=== PATIENT | female | born 1985 | race American Indian/Alaskan Native ===

== ENCOUNTER 2018-02-12 08:00 | Inpatient (IN) | payer MEDICAID ==
[2018-02-12] MEDS ORDERED: PITOCin/NS 20 UNIT/1000ML DRIP 20,000 MILLIUNITS/1,000 ML BAG IV ONE (08:10)
--- NOTE | 2018-02-12 08:25 | History and Physical Report ---
History of Present Illness Date of examination: 02/12/18 (delivered at home) Date of admission: 02/12/18 08:00 Chief complaint: pt states she was having BH ctx then her water broke 0715 and the baby delivered shortly there after 0720. History of present illness: No PNC with this [id number] Pt denies hx of surgery no medical hx states she used marijuana prior to , denies ETOH no smoking. Past History - Obstetrical History Expected Date of Delivery: 05/27/18 Actual Gestation: 25 Week(s) 1 Day(s) : 5 Para: 1 Hx # Term Pregnancies: 1 (5 years ago) Spontaneous Abortions: 1 Induced : 2 Number of Living Children: 1 - Vital Signs Vital signs: Temp Pulse Resp BP Pulse Ox 104 H 115/75 02/12/18 08:22 02/12/18 08:22 - Physical Exam Breasts: Positive: deferred Cardiovascular: Regular rate, Normal S1, Normal S2 Abdomen: Positive: normal appearance, soft, normal bowel sounds. Negative: distention, tenderness Vulva: both: normal Vagina: Positive: normal moisture. Negative: discharge Cervix: Negative: lesion, discharge Uterus: Positive: normal size, normal contour Adnexa: both: normal Anus/Rectum: Positive: normal perianal skin, heme negative. Negative: rectal mass, hemorrhoids Extremities: Deep Tendon Reflex Grade: Normal +2 Results All other labs normal. All labs ordered Assessment and Plan 32yo @ approx 25 weeks Delivered at home. Arrived by EMS. Baby to NICU very . Placenta remains intact. Moderate bleeding noted. Orders in EMR
[2018-02-12] MEDS ORDERED: STADOL IV PRN (08:32)
[2018-02-12] MEDS ORDERED: ZOFRAN IV PRN (08:32)
[2018-02-12] MEDS ORDERED: LANSINOH TP PRN (08:38)
[2018-02-12] MEDS ORDERED: MOTRIN PO SCH (08:38)
[2018-02-12] MEDS ORDERED: PHENERGAN PR PRN (08:38)
[2018-02-12] MEDS ORDERED: DULCOLAX PR PRN (08:38)
[2018-02-12] MEDS ORDERED: TUCKS PAD TP PRN (08:38)
[2018-02-12] MEDS ORDERED: BENADRYL PO PRN (08:38)
[2018-02-12] MEDS ORDERED: MILK OF MAGNESIA PO PRN (08:38)
[2018-02-12] MEDS ORDERED: TYLENOL PO PRN (08:38)
[2018-02-12] MEDS ORDERED: PHENERGAN PO PRN (08:38)
--- NOTE | 2018-02-12 08:51 | Procedure Note ---
OB Delivery Note - [employer]: RA AGUILERA Estimated blood loss: 500cc - Vaginal Intrapartum events: no care, other(please specify) (delivered at home) Delivery placenta: spontaneous Delivery cord: 3 umbilical vessels Episiotomy: none Delivery comments: PPROM this AM Baby delivered at home Arrived via EMS Placenta delivered complete and intact by CNM. Sent to pathology. Pit IVFs EBL 500. Baby remains NICU Condition unknown at this time. - A Gender: Female (wgt and not available)
[2018-02-12] MEDS ORDERED: PITOCin/NS 20 UNIT/1000ML DRIP 20 UNITS/1,000 ML BAG IV SCH (09:00)
[2018-02-12] MEDS ORDERED: SODIUM CHLORIDE FLUSH SYRINGE 10 ML IV NR (09:00)
[2018-02-12] MEDS ORDERED: LACTATED RINGERS 1,000 ML IV SCH (09:00)
[2018-02-12 09:26] LABS: Hemoglobin 10.6 gm/dl (10.1-14.3); Mean Corpuscular HGB Conc 33 % (30-34); Mean Corpuscular Hemoglobin 29 pg (28-32); Mean Corpuscular Volume 88 fl (79-97); Platelet Count 276 K/mm3 (140-440); Red Blood Count 3.62 M/mm3 (3.65-5.03)
[2018-02-12] MEDS: MOTRIN PO SCH ×2 (09:32→20:45)
[2018-02-12] MEDS ORDERED: PRENATAL VITAMIN PO SCH (10:00)
[2018-02-12 10:07] LABS: Rubella IgG Antibody Immune (Immune)
[2018-02-12 11:31] LABS: Bilirubin,Urine NEG (Negative); Blood,Urine MOD (Negative); Color,Urine Yellow (Yellow); Mucus,Urine 1+ /HPF
[2018-02-12 11:34] LABS: RBC,Urine > 182.0 /HPF (0.0-6.0)
[2018-02-12 11:43] LABS: Amphetamine Screen,Urine PRESUMPTIVE NEGATIVE; Benzodiazepines Screen,Urine PRESUMPTIVE NEGATIVE; Cocaine Screen,Urine PRESUMPTIVE NEGATIVE; Methadone Screen,Urine PRESUMPTIVE NEGATIVE; Opiate Screen,Urine PRESUMPTIVE NEGATIVE
[2018-02-12 12:01] LABS: Cannabinoid Screen,Urine PRESUMPTIVE POSITIVE
[2018-02-12 12:10] LABS: Hepatitis C Virus Antibody Non-Reactive (NonReactive)
[2018-02-12 13:04] LABS: Basophils % (Manual) 0 % (0.0-1.8); Eosinophils % (Manual) 0 % (0.0-4.3); Total Cells Counted 100
[2018-02-12 13:11] LABS: Anisocytosis 1+
[2018-02-12 13:12] LABS: Platelet Estimate Cons
[2018-02-12 20:25] LABS: Hematocrit 33.4 % (30.3-42.9)
[2018-02-13] MEDS ORDERED: M-M-R II VACCINE SUB-Q ONE (06:00)
[2018-02-13] MEDS ORDERED: BOOSTRIX IM ONE (06:00)
--- NOTE | 2018-02-13 07:47 | Progress Note ---
Assessment and Plan Patient resting w/o complaints. ASHA Carrero, H&H .4. in NICU - per patient doing well. Encouraged visitation and pumping of breastmilk. plan to d/c home tomorrow. Continue pathway. - Patient Problems (1) No care in current Current Visit: Yes Status: Acute Qualifiers: Trimester: second trimester Qualified Code(s): O09.32 - Supervision of with insufficient care, second trimester (2) delivery Current Visit: Yes Status: Acute Subjective - Subjective Date of service: 02/13/18 Principal diagnosis: day #1 s/p home delivery Patient reports: appetite normal, voiding normally, dizzy ambulation, pain well controlled, ambulating normally, no nauseated : in NICU Objective - Vital Signs Latest vital signs: Vital Signs Temp Pulse Resp BP BP Pulse Ox 02/13/18 04:30 98.7 F 71 16 117/70 02/13/18 00:00 98.7 F 66 18 101/67 02/12/18 19:30 98.6 F 81 18 110/55 02/12/18 16:39 98.3 F 70 20 103/63 99 02/12/18 12:58 98.2 F 89 16 117/80 99 02/12/18 10:06 86 106/70 02/12/18 09:51 81 116/72 02/12/18 09:36 104 H 108/60 02/12/18 09:21 95 H 100/55 02/12/18 09:06 87 104/65 02/12/18 08:51 102 H 110/69 02/12/18 08:36 92 H 110/69 02/12/18 08:30 98.4 F 102 H 20 02/12/18 08:22 104 H 115/75 Intake and Output 02/12/18 02/12/18 02/13/18 15:59 23:59 07:59 Intake Total 740 240 500 Output Total 700 Balance 740 -460 500 Intake: Oral 740 240 200 Intake, Free Water 300 Output: Urine 700 Void 700 Other: Total, Intake Amount 240 240 200 Total, Output Amount 150 # Voids Void 1 1 Weight 83.915 kg Estimated Blood Loss 500 - Exam Breasts: Present: normal, other (pumping) Cardiovascular: Present: Regular rate Lungs: Present: Clear to auscultation, Normal air movement Abdomen: Present: normal appearance, soft Vulva: both: normal Uterus: Present: normal, firm, fundal height below umbilicus Extremities: Present: normal - Labs Labs: Abnormal lab results 02/12/18 Range/Units 08:52 WBC 16.6 H (4.5-11.0) K/mm3 RBC 3.62 L (3.65-5.03) M/mm3 RDW 13.0 L (13.2-15.2) % Seg Neuts % (Manual) 91.0 H (40.0-70.0) % Lymphocytes % (Manual) 4.0 L (13.4-35.0) % Seg Neutrophils # Man 15.1 H (1.8-7.7) K/mm3 Lymphocytes # (Manual) 0.7 L (1.2-5.4) K/mm3
[2018-02-13] MEDS: COLACE PO SCH (18:26)
[2018-02-13] MEDS: MOTRIN PO SCH (18:27)
[2018-02-14] MEDS: COLACE PO SCH (02:19)
[2018-02-14] MEDS: MOTRIN PO SCH (02:21)
--- NOTE | 2018-02-14 06:22 | Discharge Summary ---
Providers - Providers Date of Admission: 02/12/18 08:00 Date of discharge: 02/14/18 (pt agrees with d/c ) Attending physician: GRACIELA KESSLER Primary care physician: GRACIELA KESSLER Hospitalization Reason for admission: other (delivered @ home girl) Delivery: Episiotomy: none Laceration: none Other procedures: none complications: none Discharge diagnosis: delivery baby: female (NICU) Hospital course: outside of hospital delivery of female; no care Pt w/o complaint VSS FF below umb Lochia scant Perineum intact. Asymptomatic anemia Doing well s/p delivery P: d/c today with instructions Pt desires to f/u @ [facility] for her PP care information provided to pt. Condition at discharge: Good Disposition: DC-01 TO HOME OR SELFCARE - Discharge Diagnoses (1) delivery Status: Acute Comment: RTO 4 weeks PP care Plan - Provider Discharge Summary Activity: routine, no sex for 6 weeks, no heavy lifting 4 weeks, no strenuous exercise Diet: routine Instructions: routine Additional instructions: [] Smoking cessation referral if applicable(refer to patient education folder for contact #) [] Refer to [facility] Booklet Call your doctor immediately for: * Fever > 100.5 * Heavy vaginal bleeding ( >1 pad per hour) * Severe persistent headache * Shortness of breath * Reddened, hot, painful area to leg or breast * Drainage or odor from incision. * Keep incision clean and dry at all times and follow doctor's instructions regarding bathing/showering - Follow up plan Follow up: GRACIELA KESSLER MD [Primary Care Provider] - 03/14/18 (Please call [phone] to schedule your visit in 4 weeks. OFFICE: [facility]; [address] [place] [address] [address]; [facility] [id number])
[2018-02-14 12:38] VITALS: BP 114/69
== END 2018-02-14 11:00 | disposition home or self-care (01) | DRG 775 ==
LOC: LD 08:00 → OB 11:45
PROVIDERS: ADMIT Obstetrics & Gynecology; ATTEND Obstetrics & Gynecology
PROC: 10E0XZZ Delivery of Products of Conception, External Approach (ICD-10-PCS; principal; 2018-02-12)
PROC: 3E0234Z Introduction of Serum, Toxoid and Vaccine into Muscle, Percutaneous Approach (ICD-10-PCS; 2018-02-12)
DX: O90.81 Anemia of the puerperium (principal); Z3A.25 25 weeks gestation of pregnancy; Z37.0 Single live birth; Z23 Encounter for immunization; D64.9 Anemia, unspecified; O60.14X0 Preterm labor third trimester with preterm delivery third trimester, not applicable or unspecified
CPT/HCPCS: 36415; 80307; 81001; 82962; 85007; 85014; 85018; 85025; 85660; 86592; 86706; 86762; 86803; 86850; 86900; 86901; 87806; 88305; 90471; 90715; 99211; G0463; J2590